=== PATIENT | female | born 2000 | race Two or more races ===

== ENCOUNTER 2023-10-02 12:13 | Emergency (ER) | payer MEDICAID ==
[~2023-10-02] VITALS: Ht 165.1 cm; Wt 73.0 kg
[~2023-10-02 12:13] MED LIST: CEPH500C PO
[2023-10-02 12:58] LABS: Amphetamine Screen, Urine Neg (NEGATIVE); Barbiturate Scree,Urine Neg (NEGATIVE); Benzodiazephine Screen, Urine Neg (NEGATIVE); Cocaine Screen, Urine Neg (NEGATIVE); Opiate Scree,Urine Neg (NEGATIVE); Phencyclidine Screen, Urine Neg (NEGATIVE)
[2023-10-02 12:59] LABS: Cannabinoid Screen, Urine Pos (NEGATIVE)
[2023-10-02] MEDS: ACTIVATED CHARCOAL 50 GM/240 ML SOL PO ONE (13:00)
[2023-10-02] MEDS: ONDANSETRON HCL 4 MG/2 ML VIAL IV ONE (14:30)
[2023-10-02 17:03] VITALS: PULSE 95; RESP 20; O2SAT 96
[2023-10-02 18:30] VITALS: BP 127/84; PULSE 90; RESP 15; O2SAT 98
== END 2023-10-02 19:33 | disposition left against medical advice (07) ==
LOC: ER 12:13 → EDBD 12:13 → ER 19:33
DX: R45.851 Suicidal ideations (principal); F41.9 Anxiety disorder, unspecified; F32.9 Major depressive disorder, single episode, unspecified; Z79.899 Other long term (current) drug therapy
CPT/HCPCS: 80307; 93005; 96374; 99285; J2405

== ENCOUNTER 2024-04-24 23:02 | Emergency (ER) | payer OTHER, MEDICAID ==
[~2024-04-24] VITALS: Ht 160 cm; Wt 71.1 kg
[2024-04-24 23:06] VITALS: BP 120/75
[2024-04-25 00:19] VITALS: PULSE 106; RESP 16; O2SAT 98
[2024-04-25] MEDS: VENLAFAXINE HCL 37.5MG TABLET PO ONE (00:19)
[2024-04-25] MEDS ORDERED: VENL225T20 PO (00:25)
--- NOTE | 2024-04-25 00:25 | ED.PDOC ---
Psychiatric HPI Comments THIS IS A 24-YEAR-OLD FEMALE PRESENTS TO THE ED FOR MEDICATION REFILL. PATIENT REPORTS CURRENTLY ON EFFEXOR 225 MG ONCE DAILY HAS BEEN WITHOUT MEDICATION X2 DAYS. STATES RECENTLY RELEASED FROM REHAB AND DOES NOT HAVE A FOLLOW UP FOR 1 WEEK FOR HER REFILLS. SHE DENIES ANY SYMPTOMS OR CONCERNS AT THIS TIME. SHE REPORTS HISTORY OF ANXIETY. DENIES SI, SA, HI, CAREY Chief Complaint: Mental Health Time Seen by MD: 23:29 Primary Care Provider: DENIES Mode of Arrival: Ambulatory Past Medical History PAST MEDICAL HISTORY: Anxiety, Depression Surgical History: Denies all surgeries EMPLOYMENT APPEALS EXAMINER History: Denies all EMPLOYMENT APPEALS EXAMINER Hx Family History Family History: Reviewed,noncontributory to illness Social History Smoker: Non-Smoker Alcohol: Denies ETOH Use Drugs: Denies Drug Use Lives In: Home Constitutional: denies: chills, diaphoresis, fatigue, fever, malaise, sweats, weakness, others EENTM: denies: blurred vision, double vision, ear bleeding, ear discharge, ear drainage, ear pain, ear ringing, eye pain, eye redness, hearing loss, mouth pain, mouth swelling, nasal discharge, nose bleeding, nose congestion, nose pain, photophobia, tearing, throat pain, throat swelling, voice changes, others Respiratory: denies: cough, hemoptysis, orthopnea, SOB at rest, shortness of breath, SOB with excertion, stridor, wheezing, others Cardiovascular: denies: chest pain, dizzy spells, diaphoresis, Dyspnea on exertion, edema, irregular heart beat, left arm pain, lightheadedness, palpitations, PND, syncope, others Gastrointestinal: denies: abdomen distended, abdominal pain, blood streaked bowels, constipated, diarrhea, dysphagia, difficulty swallowing, hematemesis, melena, nausea, poor appetite, poor fluid intake, rectal bleeding, rectal pain, vomiting, others Genitourinary: denies: abnormal vagina bleeding, burning, dyspareunia, dysuria, flank pain, frequency, hematuria, incontinence, pain, , vagina discharge, urgency, others Neurological: denies: dizziness, fainting, headache, left sided numbness, left sided weakness, numbness, paresthesia, pre-existing deficit, right sided numbness, right sided weakness, seizure, speech problems, tingling, tremors, weakness, others Musculoskeletal: denies: back pain, gout, joint pain, joint swelling, muscle pain, muscle stiffness, neck pain, others Integumetry: denies: bruises, change in color, change in hair/nails, dryness, laceration, lesions, lumps, rash, wounds, others Allergic/Immunocompromised: denies: Difficulty Healing, Frequent Infections, Hives, Itching, others Hematologic/Lymphatic: denies: anemia, blood clots, easy bleeding, easy bruising, swollen glands, others Endocrine: denies: excessive hunger, excessive sweating, excessive thirst, excessive urination, flushing, intolerance to cold, intolerance to heat, unexplained weight gain, unexplained weight loss, others Psychiatric: reports: anxiety; denies: bipolar disorder, depression, hopeless, panic disorder, schizophrenia, sleepless, suicidal, others Physical Exam General Appearance: No Apparent Distress, Normal HEENT: Pharynx Normal Neck: Full Range of Motion, Non-Tender Respiratory: Lungs Clear, No Respiratory Distress, Normal Breath Sounds Cardiovascular: No Murmur, Normal Peripheral Pulses, Regular Rate/Rhythm Breast Exam: Deferred Gastrointestinal: Non Tender, Soft Genitalia: Deferred Pelvic: Deferred Rectal: Deferred Extremities: Normal capillary refill, Normal inspection, Normal range of motion, Non-tender, No pedal edema Musculoskeletal : Apperance: Normal Neurologic: Alert, cdl service technician II-XII nml as Tested, No Motor Deficits, Normal Affect, Normal Mood, No Sensory Deficits Cerebellar Function: Normal Reflexes: Normal Skin: Dry, Normal Color, Warm Lymphatic: No Adenopathy Was a procedure done? Was a procedure done?: No Psych Differential Dx Psych. Differential Dx: Anxiety X-Ray, Labs, Meds, VS Vital Signs Date Time Temp Pulse Resp B/P (MAP) Pulse Ox O2 Delivery O2 Flow Rate FiO2 04/25/24 00:19 106 16 98 Room Air 04/24/24 23:06 98.2 106 16 120/75 (90) 98 Current Medications Medications (Trade) Dose Ordered Sig/Taj Route Start Time Stop Time Status Last Admin Venlafaxine HCl (Effexor) 75 mg ONCE ONCE PO 04/25/24 00:15 04/25/24 00:16 DC 04/25/24 00:19 X-Ray, Labs, Meds, VS Comment PATIENT GIVEN 1 DOSE OF EFFEXOR NOW. REFILL SENT FOR 30 DAYS. ADVISED TO FOLLOW UP WITH HER PRIMARY FOR CONTINUED REFILLS. PATIENT AGREES WITH DISCHARGE PLAN OF CARE. Time of 1ST Reevaluation: 00:25 Reevaluation 1ST: Improved Patient Education/Counseling: Diagnosis, Treatment, Prognosis, Need For Follow Up Family Education/Counseling: No Family Present Departure 1 Departure Time of Disposition: 00:25 Impression: Primary Impression: ZANDER (generalized anxiety disorder) Disposition: 01 HOME / SELF CARE / HOMELESS Condition: Stable e-Prescriptions Venlafaxine Hcl (Venlafaxine Hcl Er) 225 Mg Tab 1 TAB PO DAILY for 30 Days, #30 TAB Prov: NIKKI BALLARD 04/25/24 Discharged With: Self Critical Care Note Critical Care Time?: No Stability Stability form required: NIKKI Dacosta Apr 25, 2024 00:25
== END 2024-04-25 00:29 | disposition home or self-care (01) ==
LOC: ER 23:02
DX: F41.1 Generalized anxiety disorder (principal); F32.A Depression, unspecified; Z76.0 Encounter for issue of repeat prescription; Z79.899 Other long term (current) drug therapy